=== PATIENT | female | born 1980 | race Caucasian/White ===

== ENCOUNTER 2017-03-27 21:44 | Emergency (ER) | payer OTHER ==
[~2017-03-27] VITALS: Ht 152.4 cm; Wt 79.8 kg
[~2017-03-27 21:44] MED LIST: ONDA4TAB7 SL; [UNRECOGNIZED DRUG - OTHER] PO
[2017-03-27 21:47] VITALS: TEMP 36.5; Ht 152.4 cm; Wt 79.8 kg
[2017-03-27 22:30] LABS: BASO % 0.8 %; BASO ABS # 0.05 K/uL (0-0.2); COMPLETE YES; EOS % 4.7 %; HEMATOCRIT 35.8 % (37-47); IG% 0.2 %; LYMPH % 41.1 %; LYMPH ABS # 2.44 K/uL (1.2-3.4); MEAN CORPUSCULAR HEMOGLOBIN 27.6 pg (25-34); MEAN CORPUSCULAR HGB CONC 32.4 g/dl (32-36); MONO % 10.9 %; NEUT % 42.3 %; PLATELET COUNT 298 K/uL (130-400); RED BLOOD COUNT 4.21 M/uL (4.2-5.4); WHITE BLOOD COUNT 5.94 K/uL (4.8-10.8)
[2017-03-27] MEDS ORDERED: KETOROLAC TROMETHAMINE 30 MG/ML VIAL IV STA (22:44)
[2017-03-27] MEDS ORDERED: ONDANSETRON INJ 2 MG/ML 2 ML VIAL IV STA (22:44)
[2017-03-27] MEDS ORDERED: SODIUM CHLORIDE 0.9% 1000ML 1,000 ML IV STA (22:44)
[2017-03-27] MEDS ORDERED: OPTIRAY 320 IV PRN (22:45)
[2017-03-27 22:46] LABS: URINE APPEARANCE CLEAR (CLEAR); URINE BILIRUBIN NEG (NEG); URINE COLOR YELLOW; URINE EPITHELIAL CELL AUTO 20-30 /lpf (0-5); URINE NITRITE NEG (NEG); URINE PH 8.5 (4.5-7.5); UROBILINOGEN NEG (NEG); ZZUR CULT IF INDIC CLEAN CATCH NO
[2017-03-27 22:47] LABS: BUN/CREATININE RATIO 12.6 (10-20); CREATININE 0.81 mg/dl (0.60-1.20); MANUAL MICROSCOPIC REQUIRED? NO; POTASSIUM 3.4 mmol/L (3.5-5.1); REVIEW REQ? NO
[2017-03-28] MEDS ORDERED: LORAZEPAM 2 MG/ML 1 ML VIAL IV STA (00:07)
[2017-03-28 02:42] VITALS: BP 101/62; PULSE 92; O2SAT 100
[2017-03-28] MEDS ORDERED: BENTYL HOME PACK 10 MG VIAL PO ONE (02:45)
--- NOTE | 2017-03-28 02:56 | EMERGENCY ROOM VISIT NOTE ---
History Report prepared by Sreedhar: Yuridia Fraser Under the Supervision of: Dr. Joseluis Giang M.D. First contact with patient: 21:55 Chief Complaint: ABDOMINAL PAIN Stated Complaint: STOMACH PAIN Nursing Triage Summary: Ambulates to room. Reports took mag citrate; and now has abd pain/cramping. History of Present Illness The patient is a 36 year old female who presents to the Emergency Room with complaints of worsening abdominal pain beginning 5 days ago. The patient took miralax, Pepto Bismol, and Colace today with no relief. The patient notes a sparse hard bowel movement 5 days ago. Since her bowel movement 5 days ago, the patient did not have another bowel movement until yesterday which she reports was also sparse and hard. The patient called her PCP who told he to take magnesium citrate which only worsened her pain. The patient also notes nausea and rates her pain as a 8/10. Her last menstrual period was on 03/13. The patient has a history of constipation but denies ever having pain like this before with her previous episodes of constipation. She has a history of a tonsillectomy. Pt denies LOC, headache, fevers, chills, diaphoresis, visual changes, neck pain, chest pain, breathing difficulties, nausea, vomiting, back pain, melena, hematochezia, urinary symptoms, numbness, weakness, lymphadenopathy, rash, or other complaints. Source of History: patient Onset: 5 days ago Position: abdomen Symptom Intensity: 8/10 Timing: worsening Associated Symptoms: + nausea, + abdominal pain Review of Systems See HPI for pertinent positives and negatives. A total of ten systems were reviewed and were otherwise negative. Past Medical & Surgical Medical Problems: (1) Vaginal delivery Family History Patient reports no known family medical history. Social History Smoking Status: Never Smoker Marital Status: Housing Status: lives with family Occupation Status: employed Current/Historical Medications No Active Prescriptions or Reported Meds Allergies Coded Allergies: No Known Allergies (Verified , *, 03/28/17) Physical Exam Vital Signs Date Time Temp Pulse Resp B/P (MAP) Pulse Ox O2 Delivery O2 Flow Rate FiO2 03/28/17 02:42 92 18 101/62 100 Room Air 03/28/17 00:52 71 18 121/62 100 Room Air 03/27/17 22:58 94 18 125/66 100 Room Air 03/27/17 21:47 36.5 104 20 100 Room Air Physical Exam GENERAL: Awake, alert, uncomfortable-appearing, in no distress HENT: Normocephalic, atraumatic. Oropharynx unremarkable. EYES: Normal conjunctiva. Sclera non-icteric. NECK: Supple. No nuchal rigidity. FROM. No JVD. RESPIRATORY: Clear to auscultation. CARDIAC: Regular rate, normal rhythm. Extremities warm and well perfused. Pulses equal. ABDOMEN: Soft, non-distended. Suprapubic tenderness to palpation. No rebound or guarding. No masses. RECTAL: Deferred. MUSCULOSKELETAL: Chest examination reveals no tenderness. The back is symmetrical on inspection without obvious abnormality. There is no CVA tenderness to palpation. No joint edema. LOWER EXTREMITIES: Calves are equal size bilaterally and non-tender. No edema. No discoloration. NEURO: Normal sensorium. No sensory or motor deficits noted. SKIN: No rash or jaundice noted. Medical Decision & Procedures ER Provider Diagnostic Interpretation: Stat read CT report reveals unremarkable appendix, no fecal impaction or bowel obstruction. Trace fluid in the pelvis. Laboratory Results 03/27/17 22:10 Red Blood Count 4.21, Mean Corpuscular Volume 85.0, Mean Corpuscular Hemoglobin 27.6, Mean Corpuscular Hemoglobin Concent 32.4, Mean Platelet Volume 10.0, Neutrophils (%) (Auto) 42.3, Lymphocytes (%) (Auto) 41.1, Monocytes (%) (Auto) 10.9, Eosinophils (%) (Auto) 4.7, Basophils (%) (Auto) 0.8, Neutrophils # (Auto ) 2.51, Lymphocytes # (Auto) 2.44, Monocytes # (Auto) 0.65, Eosinophils # (Auto ) 0.28, Basophils # (Auto) 0.05 03/27/17 22:10 Test 03/27/17 22:10 White Blood Count 5.94 K/uL (4.8-10.8) Red Blood Count 4.21 M/uL (4.2-5.4) Hemoglobin 11.6 g/dL (12.0-16.0) Hematocrit 35.8 % (37-47) Mean Corpuscular Volume 85.0 fL (80-100) Mean Corpuscular Hemoglobin 27.6 pg (25-34) Mean Corpuscular Hemoglobin Concent 32.4 g/dl (32-36) Platelet Count 298 K/uL (130-400) Mean Platelet Volume 10.0 fL (7.4-10.4) Neutrophils (%) (Auto) 42.3 % Lymphocytes (%) (Auto) 41.1 % Monocytes (%) (Auto) 10.9 % Eosinophils (%) (Auto) 4.7 % Basophils (%) (Auto) 0.8 % Neutrophils # (Auto) 2.51 K/uL (1.4-6.5) Lymphocytes # (Auto) 2.44 K/uL (1.2-3.4) Monocytes # (Auto) 0.65 K/uL (0.11-0.59) Eosinophils # (Auto) 0.28 K/uL (0-0.5) Basophils # (Auto) 0.05 K/uL (0-0.2) RDW Standard Deviation 43.7 fL (36.4-46.3) RDW Coefficient of Variation 14.2 % (11.5-14.5) Immature Granulocyte % (Auto) 0.2 % Immature Granulocyte # (Auto) 0.01 K/uL (0.00-0.02) Urine Color YELLOW Urine Appearance CLEAR (CLEAR) Urine pH 8.5 (4.5-7.5) Urine Specific [place] 1.010 (1.000-1.030) Urine Protein NEG (NEG) Urine Glucose (UA) NEG (NEG) Urine Ketones NEG (NEG) Urine Occult Blood NEG (NEG) Urine Nitrite NEG (NEG) Urine Bilirubin NEG (NEG) Urine Urobilinogen NEG (NEG) Urine Leukocyte Esterase TRACE (NEG) Urine WBC (Auto) 1-5 /hpf (0-5) Urine RBC (Auto) 0-4 /hpf (0-4) Urine Hyaline Casts (Auto) 0 /lpf (0-5) Urine Epithelial Cells (Auto) 20-30 /lpf (0-5) Urine Bacteria (Auto) NEG (NEG) Urine Test NEG (NEG) Anion Gap 6.0 mmol/L (3-11) Est Creatinine Clear Calc Drug Dose 91.5 ml/min Estimated GFR () 109.8 Estimated GFR (Non- 94.8 BUN/Creatinine Ratio 12.6 (10-20) Calcium Level 9.0 mg/dl (8.5-10.1) Total Bilirubin 0.9 mg/dl (0.2-1) Direct Bilirubin 0.2 mg/dl (0-0.2) Aspartate Amino Transf (AST/SGOT) 28 U/L (15-37) Alanine Aminotransferase (ALT/SGPT) 29 U/L (12-78) Alkaline Phosphatase 47 U/L (45-117) Total Protein 8.0 gm/dl (6.4-8.2) Albumin 4.1 gm/dl (3.4-5.0) Lipase 167 U/L (73-393) Laboratory results reviewed by me Medications Administered Medications (Trade) Dose Ordered Sig/Yaneth Route Start Time Stop Time Status Last Admin Dose Admin Ketorolac Tromethamine (Toradol Inj) 15 mg NOW STAT IV 03/27/17 22:44 03/27/17 22:45 DC 03/27/17 22:57 15 MG Ondansetron HCl (Zofran Inj) 4 mg NOW STAT IV 03/27/17 22:44 03/27/17 22:46 DC 03/27/17 22:58 4 MG Sodium Chloride 1,000 ml @ 999 mls/hr Q1H1M STAT IV 03/27/17 22:44 03/27/17 23:44 DC 03/27/17 22:57 999 MLS/HR Lorazepam (Ativan Inj) 0.5 mg NOW STAT IV 03/28/17 00:07 03/28/17 00:08 DC 03/28/17 00:13 0.5 MG Dicyclomine HCl (Dicyclomine HCl 10MG Home Pack) 1 ea UD ONCE PO 03/28/17 02:45 03/28/17 02:46 DC 03/28/17 02:39 1 EA ED Course 2238: The patient was evaluated in room B5. A complete history and physical exam was performed. 2244: Ordered Sodium Chloride 1000 ml @ 999 mls/hr IV, Zofran Inj mg IV, Toradol Inj 15 mg IV. 0006: On reevaluation, the patient is now feeling anxious. 0007: Ordered Lorazepam 0.5 mg IV. 0030: The patient is now doing well and is headed to CT. 0230: CT report reveals no evidence of bowel obstruction, colitis, or emergent pathology. Patient reevaluated. She is doing well. Discussed findings. I will give a Bentyl home pack. She will follow-up with her primary physician. Medical Decision Prior records/ancillary studies reviewed. Triage Nursing notes reviewed and agree them. The patient's history was concerning for abdominal pain. Differential diagnosis: Etiologies such as complication of laxative, constipation, appendicitis, diverticulitis, PUD, biliary pathology, UTI, pancreatitis, obstruction, mesenteric ischemia, aortic pathology, ectopic , infections, inflammatory bowel disease, renal colic, as well as others were entertained. Physical examination findings: As above. ER treatment provided: Normal saline hydration, Toradol Ativan On reassessment the patient felt better. Diagnostics interpreted by me: The labs revealed a normal CBC, chemistry panel, LFTs, lipase, urinalysis, and test. Imaging studies: CT scan as above The patient has contrast that is throughout the small bowel and colon. She has no evidence of emergent pathology seen on CT imaging. Blood work was unremarkable. Urine test negative. The patient is not . On reassessment she is doing much better. I discussed conservative management.I gave my usual and customary discussion regarding this issue. By the evaluation outlined above emergent etiologies such as appendicitis, diverticulitis, PUD, biliary pathology, UTI, pancreatitis, obstruction, mesenteric ischemia, aortic pathology, infections, inflammatory bowel disease, renal colic, as well as others were deemed relatively unlikely. The patient was informed about the findings as listed above. All questions were answered and she was pleased with the treatment. Return instructions were outlined and the patient was discharged in stable condition. Outpatient prescription management: Bentyl home pack Referral: The patient was referred back to their primary care physician for follow-up in 1 -2 days for a recheck of the current condition. Blood Pressure Screening Patient's blood pressure: Normal blood pressure Impression Primary Impression: Generalized abdominal pain Scribe Attestation The scribe's documentation has been prepared under my direction and personally reviewed by me in its entirety. I confirm that the note above accurately reflects all work, treatment, procedures, and medical decision making performed by me. Departure Information Dispostion Home / Self-Care Prescriptions No Active Prescriptions or Reported Meds Referrals Hector Grant M.D.([facility]) (PCP) Patient Instructions [facility] Additional Instructions ABDOMINAL PAIN INSTRUCTIONS: DO NOT drive, drink alcohol, operate machinery, or perform dangerous activities today. You were given medications in the ER that can affect your ability to safely function or operate a vehicle. Bentyl(dicyclomine) 10 mg: Take one tablet every 4 hours as needed for abdominal pain. Discontinue this medication if you develop any rash, itching, increased abdominal pain, heartburn, increased nausea, constipation, or as needed. Ibuprofen(Motrin, Advil) may be used for fever or pain. Use 600mg every six hours as needed. Take with food. Avoid using more than 2400mg in a 24 hour period. Do not use 2400mg per day for more than three consecutive days without physician direction. Prolonged inappropriate use can lead to stomach upset or ulcers. (AND/OR) Acetaminophen(Tylenol) may be used for fever or pain. Use 1000mg every six hours as needed. Avoid using more than 4000mg in a 24 hour period. Rest and drink plenty of fluids as tolerated. Slow sips of water or sports drinks are recommended instead of large amounts all at once. Continue current medications. Once your stomach is settled start with a clear liquid diet (jello, soup broth, etc.) and then advance as tolerated. You should avoid full, heavy meals for about 24 hrs from the time your symptoms resolved. Increase fiber in your diet. Return to the ER immediately for worsening or persistent abdominal pain, vomiting, fevers, chest pains, difficulty breathing, black or bloody stools, worsening of your condition, or as needed. Follow up with your primary physician in one to 2 days for a recheck of your current condition.
--- NOTE | 2017-03-28 07:23 | DIAGNOSTIC IMAGING REPORT ---
CT SCAN OF THE ABDOMEN AND PELVIS WITH IV CONTRAST CLINICAL HISTORY: Lower abdominal pain. Constipation. COMPARISON STUDY: Abdominal ultrasound dated 06/13/14. TECHNIQUE: Following the IV administration of 116 cc of Optiray 320, CT scan of the abdomen and pelvis is performed from the lung bases to the proximal femora. Images are reviewed in the axial, sagittal, and coronal planes. IV contrast was administered without complication. A dose lowering technique was utilized adhering to the principles of ALARA. CT DOSE: 459.54 mGy.cm FINDINGS: Lung bases: The heart is normal in size and without pericardial effusion. The lung bases are clear. Liver: The contrast-enhanced liver is normal in size, contour, and attenuation. There is no intrahepatic biliary ductal dilatation. The hepatic veins and portal veins are patent. Gallbladder: Unremarkable. Spleen: Normal in size and attenuation. Pancreas: Unremarkable. Adrenal glands: Unremarkable. Kidneys: The contrast enhanced kidneys are normal in size and without hydronephrosis. The kidneys enhance symmetrically. Abdominal vasculature: The abdominal aorta is normal in course and caliber. Bowel: The small bowel and colon are normal in course and caliber. The appendix is well-visualized and normal. Peritoneum: There is mild to moderate colonic fecal retention. No bowel obstruction is seen. There is a small fat-containing umbilical hernia. Lymphadenopathy: None. Pelvic viscera: The bladder, uterus, and adnexa are normal as visualized. There are bilateral ovarian follicles. Trace free fluid is seen in the cul-de-sac. Skeletal structures: No lytic or blastic lesions are seen. IMPRESSION: 1. There are no acute infectious or inflammatory findings in the abdomen or pelvis. 2. Mild/moderate colonic fecal retention. 3. There is trace and likely physiologic free fluid in the cul-de-sac. Electronically signed by: Chidi Zapata M.D. 03/28/2017 7:21 AM Dictated Date/Time: 03/28/2017 7:19 AM
== END 2017-03-28 02:58 | disposition home or self-care (01) ==
LOC: C.EDB 21:45
DX: R10.84 Generalized abdominal pain (principal)